=== PATIENT | female | born 1980 | race Hispanic/Latino ===

== ENCOUNTER 2017-07-19 21:10 | Emergency (ER) | payer OTHER ==
[2017-07-19] MEDS ORDERED: Acetaminophen 120 MG Suppository ONE (23:28)
[2017-07-19] MEDS ORDERED: Bicillin LA 2.4 MILL.UNITS/4 ML SYRINGE ONE (23:28)
== END 2017-07-19 23:57 | disposition home or self-care (01) ==
LOC: ERS 21:10
DX: J20.9 Acute bronchitis, unspecified (principal); J02.8 Acute pharyngitis due to other specified organisms; B96.89 Other specified bacterial agents as the cause of diseases classified elsewhere; F17.210 Nicotine dependence, cigarettes, uncomplicated
CPT/HCPCS: 87081; 87430; 96372; J0561

== ENCOUNTER 2017-07-20 20:37 | Emergency (ER) | payer OTHER ==
[~2017-07-20 20:37] MED LIST: ISOVUE-370 76%-LOCM 1 ML ONE
[2017-07-20] MEDS ORDERED: Dexamethasone 4 mg/ml Vial ONE (21:26)
[2017-07-20] MEDS ORDERED: Ketorolac Tromethamine 30 MG/ML VIAL ONE (21:26)
[2017-07-20] MEDS ORDERED: cefTRIAXone\\ROCEPHIN 1 GM VIAL ONE (21:26)
[2017-07-20] MEDS ORDERED: Sodium Chloride 0.9% 100 ML ONE (21:27)
--- NOTE | 2017-07-20 22:04 | CT ---
CT NECK SOFT TISSUES WITH IV CONTRAST 07/20/17 HISTORY: Right neck mass, sore throat, otalgia. FINDINGS: There is enlargement of the tonsils on both sides. There is a 12 mm fluid collection with periphera l enhancement in the right tonsil indicative of a right tonsillar abscess. The airway is patent. No significant lymphadenopathy is seen. The submandibular and parotid glands a ppear normal. There are mild degenerative changes in the spine. The visualized paranasal sinuses and mastoid air cells are well aerated. Upper lung jameson demonstrate a calcified granuloma on the left and a couple of nodules on the right measuring 8 mm and 18 mm respectively. IMPRESSION: 1. Bilateral tonsillitis with 12 mm right tonsillar abscess. 2. Indeterminate right upper lobe lung nodules. A dedicated CT scan of the chest is recommended after the treatment of the tonsillar abscess and a course of antibiotics. Code T and Code LN POS: MILO
== END 2017-07-20 22:51 | disposition home or self-care (01) ==
LOC: ERS 20:37
DX: J36 Peritonsillar abscess (principal); F17.210 Nicotine dependence, cigarettes, uncomplicated
CPT/HCPCS: 70491; 96365; 96375; J0696; J1100; J1885; J2270; J7050

== ENCOUNTER 2017-07-21 08:39 | Emergency (ER) | payer OTHER | END 2017-07-21 09:05 | disposition home or self-care (01) | LOC: ERS 08:39 | DX: J36 Peritonsillar abscess (principal); F17.200 Nicotine dependence, unspecified, uncomplicated | CPT/HCPCS: 99282 ==